=== PATIENT | female | born 1990 | race Caucasian/White ===

== ENCOUNTER 2016-12-03 10:10 | Emergency (ER) | payer SELFPAY ==
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
[2016-12-03 12:49] VITALS: BP 97/60
== END 2016-12-03 12:59 | disposition home or self-care (01) ==
LOC: ED 10:10
DX: M25.511 Pain in right shoulder (principal); V89.2XXA Person injured in unspecified motor-vehicle accident, traffic, initial encounter; Y92.9 Unspecified place or not applicable; Y09 Assault by unspecified means; R07.9 Chest pain, unspecified
CPT/HCPCS: 71020; 99282

== ENCOUNTER 2018-02-11 17:22 | Emergency (ER) | payer OTHER ==
[2018-02-11 17:31] VITALS: BP 105/57
--- NOTE | 2018-02-11 17:41 | UC ---
Skin Complaint HPI - HPI Summary HPI Summary: 27 y/o female with no PMH, no injury notes increase pain, drainage, redness to R fifth finger, staying at local long term. no prior occurance, no fever, chills able to move well with only minimal pain. + mild swelling - History of Current Complaint Time Seen by Provider: 02/11/18 17:23 Stated Complaint: SPIDER BITE ON FINGER Hx Obtained From: Patient Hx Last Menstrual Period: 02/10/18 ?: No Onset/Duration: Sudden Onset, Lasting Hours - since this AM Timing: Constant Current Severity: Moderate Pain Intensity: 7 Pain Scale Used: 0-10 Numeric Location: Discrete - R 5h end of finger - Allergy/Home Medications Allergies/Adverse Reactions: Allergies Allergy/AdvReac Type Severity Reaction Status Date / Time No Known Allergies Allergy Verified 02/11/18 17:31 PMH/Surg Hx/FS Hx/Imm Hx Previously Healthy: Yes - Surgical History Surgical History: None - Social History Alcohol Use: None Substance Use Type: None Smoking Status (MU): Current Every Day Smoker Review of Systems All Other Systems Reviewed And Are Negative: Yes Skin: Positive: Rash, Other - open draining wound Is Patient Immunocompromised?: No Physical Exam Triage Information Reviewed: Yes Appearance: Well-Appearing, No Pain Distress, Well-Nourished Vital Signs: Initial Vital Signs Temp 98.4 F 02/11/18 17:27 Pulse 81 02/11/18 17:27 Resp 18 02/11/18 17:27 BP 105/57 02/11/18 17:27 Pulse Ox 100 02/11/18 17:27 Eyes: Positive: Conjunctiva Clear Musculoskeletal Exam: Normal Musculoskeletal: Positive: Strength Intact - R hand, ROM Intact - R hand Neurological Exam: Normal Neurological: Positive: Other: - SITLT Skin: Positive: Other - small erythematous area over 5th pinky with clear drainage at base of nail, + TTP, no lymph. streaking, ful ROM DIP, PIP without pain. Course/Dx - Course Course Of Treatment: cellulitis 5th finger, abx given, soaks 2 x s daily - Differential Diagnoses - Skin Complaint Differential Diagnoses: Cellulitis - Diagnoses Provider Diagnosis: Cellulitis Discharge - Sign-Out/Discharge Documenting (check all that apply): Patient Departure All imaging exams completed and their final reports reviewed: No Studies - Discharge Plan Condition: Good Disposition: HOME Prescriptions: Cephalexin CAP* [Keflex CAP*] 500 mg PO TID #21 cap Patient Education Materials: Cellulitis (ED) Referrals: No Primary Care Phys,NOPCP [Primary Care Provider] - Additional Instructions: - COver with nesporin/ bacitracin and band-aide twice daily - Soaks 2-3 times a day - ANtibiotics as directed - REturn if worsening or no improvement within 2-3 days - Billing Disposition and Condition Condition: GOOD Disposition: Home
== END 2018-02-11 18:01 | disposition home or self-care (01) ==
LOC: UCEAST 17:22
DX: L03.011 Cellulitis of right finger (principal); F17.210 Nicotine dependence, cigarettes, uncomplicated
CPT/HCPCS: 99212; G0463

== ENCOUNTER 2020-04-02 22:15 | Inpatient (IN) ==
[2020-04-02] MEDS ORDERED: Penicillin G Potassium IV 5,000,000 UNITS in NS 0.9% 100 ml BAG 100 ML IVPB ONE (22:43)
[2020-04-02] MEDS ORDERED: Lactated Ringers 1000 ml BAG 1,000 ML IV ONE (22:43)
[2020-04-02 22:58] LABS: ABS Basophils 0.1 10^3/ul (0-0.2); ABS Lymphocytes 2.6 10^3/ul (1.0-4.8); ABS Neutrophils 12.1 10^3/ul (1.5-7.7); Eosinophil % 0.2 %; Hematocrit 32 % (35-47); Hemoglobin 11.4 g/dL (12.0-16.0); Lymphocyte % 16.5 %; Mean Corpuscular HGB Conc 35 g/dL (31-36); Mean Corpuscular Hemoglobin 32 pg (27-31); Mean Corpuscular Volume 90 fL (80-97); Mean Platelet Volume 7.6 fL (7.4-10.4); Nucleated Red Blood Cells % 0.1; Platelet Count 282 10^3/uL (150-450); Red Blood Count 3.58 10^6 /uL (3.70-4.87); Red Cell Distribution Width 13 % (10-15); White Blood Count 15.7 10^3/uL (3.5-10.8)
[2020-04-02 23:03] LABS: Urine Benzodiazepine Screen None Detected (None Detect); Urine Cannabinoids Screen Presumptive Positive (None Detect); Urine Opiates Screen None Detected (None Detect)
[2020-04-02] MEDS ORDERED: Oxytocin in LR 20 UNITS/1,000 ML BAG IVPB ONE (23:21)
[2020-04-03] MEDS ORDERED: Witch Hazel PAD JAR TOPICAL PRN (00:24)
[2020-04-03] MEDS ORDERED: Dibucaine 1% OINT 28.35 GM TUBE PR PRN (00:24)
[2020-04-03] MEDS ORDERED: Oxytocin in LR 20 UNITS/1,000 ML BAG IVPB SCH (01:00)
[2020-04-03] MEDS ORDERED: Lactated Ringers 1000 ml BAG 1,000 ML IV SCH (01:00)
[2020-04-03] MEDS ORDERED: Penicillin G Potassium IV 3,000,000 UNITS in NS 0.9% 100 ml BAG 100 ML IVPB SCH (03:30)
[2020-04-03 06:57] LABS: ABS Basophils 0.1 10^3/ul (0-0.2); ABS Lymphocytes 2.5 10^3/ul (1.0-4.8); ABS Monocytes 1.5 10^3/ul (0-0.8); ABS Neutrophils 12.5 10^3/ul (1.5-7.7); Eosinophil % 0.2 %; Hematocrit 27 % (35-47); Hemoglobin 9.4 g/dL (12.0-16.0); Lymphocyte % 15.2 %; Mean Corpuscular HGB Conc 35 g/dL (31-36); Mean Corpuscular Hemoglobin 32 pg (27-31); Mean Corpuscular Volume 91 fL (80-97); Mean Platelet Volume 7.9 fL (7.4-10.4); Platelet Count 246 10^3/uL (150-450); Red Blood Count 2.93 10^6 /uL (3.70-4.87); Red Cell Distribution Width 13 % (10-15); White Blood Count 16.6 10^3/uL (3.5-10.8)
[2020-04-03] MEDS: Nicotine PATCH 14 MG/24 HR PATCH TRANSDERM SCH (13:00)
[2020-04-04] MEDS: Nicotine PATCH 14 MG/24 HR PATCH TRANSDERM SCH (09:07)
[2020-04-04 09:11] VITALS: BP 128/84
== END 2020-04-04 18:38 | disposition home or self-care (01) | DRG 560 ==
LOC: MCHOBOUT 22:15 → MCHOB 22:44
PROVIDERS: ADMIT Midwife; ATTEND Midwife